=== PATIENT | female | born 1935 | race Caucasian/White ===

== ENCOUNTER 2017-11-02 06:17 | Inpatient (IN) | payer MEDICARE, OTHER ==
[2017-10-22 09:22] LABS: ABSOLUTE BASOPHILS 0.1 thou/uL (0.0-0.2); ABSOLUTE EOSINOPHILS 0.2 thou/uL (0.0-0.7); ABSOLUTE LYMPHOCYTES 1.8 thou/uL (0.8-5.3); ABSOLUTE MONOCYTES 0.8 thou/uL (0.0-1.2); ABSOLUTE NEUTROPHILS 6.2 thou/uL (1.6-8.1); BASOPHILS 1.2 %; EOSINOPHILS 2.6 %; HEMATOCRIT 36.3 % (37.0-47.0); HEMOGLOBIN 11.5 gm/dL (12.0-15.0); LYMPHOCYTES 20.1 %; MCHC 31.8 g/dL (28.0-37.0); MCV 88.1 fL (80.0-100.0); MONOCYTES 8.3 %; MPV 9.4 fl. (7.2-11.1); NUCLEATED RBCS 0 /100WBC; PLATELET COUNT* 224 thou/uL (150-400); POLYS 67.8 %; RBC 4.12 mil/uL (4.20-5.00); RDW-CV 15.6 % (10.5-14.5); WBC 9.1 thou/uL (4.0-11.0)
[2017-10-22 09:32] LABS: APTT 30.2 Seconds (25.0-31.3); PROTIME 9.7 Seconds (9.20-11.50)
[2017-10-22 09:35] LABS: ALBUMIN 3.7 g/dL (3.4-5.0); CALCIUM 9.2 mg/dL (8.5-10.1); CREATININE 1.2 mg/dL (0.6-1.3); POTASSIUM 5.3 mmol/L (3.5-5.1); TOTAL BILIRUBIN 0.2 mg/dL (<0.1-1.0); TOTAL PROTEIN 7.6 g/dL (6.4-8.2)
[2017-10-22 10:27] LABS: ESR (SEDRATE) 30 mm/hr (0-30)
--- NOTE | 2017-10-23 17:05 | EKG ---
[place] [address] ELECTROCARDIOGRAM REPORT Name: RIASCOOBY ALDRICH Room: PRE IN .R.#: [id number] Admission: Attend Phys: Jose Rojo Discharge: Date of : 31 Report #: [id number] THIS REPORT FOR: //name// [facility] Test Date: 2017-10-22 Test Time: 09:23:38 Pat Name: SCOOBY ROLLINS Department: Room: Gender: F [employer] Machine: : 1935 Requested By: Will Tanner Order Number: [id number] Reading MD: Akash Armenta Measurements Intervals Orient Rate: 77 P: 70 MT: 212 QRS: 25 QRSD: 87 T: 24 QT: 368 QTc: 417 Interpretive Statements Sinus rhythm Borderline prolonged MT interval Probable anteroseptal infarct, old No previous ECG available for comparison Electronically Signed On 10-23-2017 17:05:17 CDT by Akash Armenta [email or web address] <ELECTRONICALLY SIGNED> By: Akash Armenta MD, [facility] 10/23/17 1705 0923 2 Akash Armenta MD, FACC /EPI
[~2017-11-02] VITALS: Ht 160 cm; Wt 76.7 kg
[~2017-11-02 06:17] MED LIST: AMARYL2 MG PO; AMBIEN 5 MG TABL5 M1 PO; ASPIRIN81 M2 PO; COLACE100 MG PO; HYZAAR 100-12.1 EACH PO; JANUMET 50-1,01 EACH PO; LYRICA 75 MG CA75 MG PO; NORCO 5-325 TA1 EACH PO; NORVASC5 MG PO; SYNTHROID75 MCG PO
[2017-11-02 11:30] VITALS: BP 157/76
[2017-11-02 17:10] VITALS: BP 158/68
[2017-11-02 20:00] VITALS: BP 147/69
[2017-11-02 23:48] VITALS: BP 113/56
[2017-11-03 04:00] VITALS: BP 115/50
[2017-11-03 04:45] LABS: HEMATOCRIT 27.8 % (37.0-47.0); HEMOGLOBIN 9.1 gm/dL (12.0-15.0)
[2017-11-03 08:00] VITALS: BP 159/93
[2017-11-03 15:53] VITALS: BP 149/68
[2017-11-03 20:00] VITALS: BP 152/64
[2017-11-04 00:32] VITALS: BP 146/70
[2017-11-04 03:55] VITALS: BP 154/69
[2017-11-04 04:33] LABS: HEMOGLOBIN 8.8 gm/dL (12.0-15.0)
[2017-11-04 08:00] VITALS: BP 111/66
[2017-11-04 16:54] VITALS: BP 118/71
[2017-11-04 20:00] VITALS: BP 161/62
[2017-11-05 00:04] VITALS: BP 154/66
--- NOTE | 2017-11-05 06:05 | PATH ---
[address] [address] PATHOLOGY RPT PROCEDURE Name: GOSIA ROLLINS ELINOR Room: [address] IN M.R.#: [id number] Admission: 11/02/17 Date of : 31 Discharge: Report #: [id number] Path Case #: [id number] [facility] Accession Number: [id number] . 01 Material submitted: . RIGHT KNEE BONE AND TISSUE . 01 Clinical history: . Right knee degenerative joint disease . 02 Diagnosis: Right knee bone and tissue, total knee replacement: - Benign meniscus and synovium and benign bone and cartilage with severe degenerative changes. (COREY:db; 11/04/2017) LBQ/11/04/2017 . 02 Electronically signed: . Cameron Cardenas MD, Pathologist NPI- [id number] . 01 Gross description: . Received in formalin labeled "Gosia Rollins, right knee bone and tissue," are multiple segments of bone, including tibial plateau, measuring 13.7 x 11.8 x 1.8 cm in aggregate dimensions. Soft tissue and meniscus are present. The specimen displays focal eburnation of the articular surfaces. Shop [employer] bone and soft tissue are submitted in cassette A1, following decalcification. (DAC; 11/03/2017) XDC/XDC . 02 Pathologist provided ICD-10: M17.11 . 02 CPT . 675908, 420274 Performed at: [address], [place] [id number] MD Steve Anne MD Phone: [phone] Performed at: 02 [facility] [address], [place], [place] [id number] MD Cameron Cardenas MD Phone: [phone]
[2017-11-05 08:29] VITALS: BP 182/65
[2017-11-05 09:32] VITALS: BP 155/61
[2017-11-05 11:48] VITALS: BP 155/61
[2017-11-05] MEDS ORDERED: ELIQUIS2.5 MG PO (11:56)
[2017-11-05] MEDS ORDERED: OXYCODONE HCL 55 MG PO (11:57)
--- NOTE | 2017-11-23 11:41 | OP ---
[address] [address] OPERATIVE REPORT Name: SCOOBY ROLLINS ELINOR Room: [address] IN M.R.#: [id number] Admission: 11/02/17 Attend Phys: Jose Rojo Discharge: 11/05/17 Date of : 31 Report #: [id number] THIS REPORT FOR: //name// CC: Gene Benitesdylon Anguiano DICTATED BY: Hamilton Dutta DO DATE OF SERVICE: 11/02/2017 PREOPERATIVE DIAGNOSIS: Advanced degenerative joint disease, right knee. POSTOPERATIVE DIAGNOSIS: Advanced degenerative joint disease, right knee. PROCEDURE PERFORMED: Right total knee arthroplasty. PRIMARY SURGEON: Will Tanner DO COACH: Hamilton Dutta DO SECOND ASSIST: Stan Diaz DO ANESTHESIA: General with local capsular block. ESTIMATED BLOOD LOSS: 125 mL. SPECIMENS: None. COMPLICATIONS: None. CONDITION: Stable. DRAINS: None. ANTIBIOTICS: 2 grams Ancef preop. IMPLANTS: 1. [employer] size 4 posterior stabilized femoral component. 2. A size 4 tibial baseplate. 3. A 11 mm posterior stabilized polyethylene liner. 4. A 29 mm oval patella. INDICATIONS: The patient is an 82-year-old female who is well known to our clinic. We have seen her multiple times regarding her right knee pain. Unfortunately, she has continued to have pain that is affecting her quality of [address] [place] [address] OPERATIVE REPORT Name: SCOOBY ROLLINS OCTOBER Room: [address] IN M.R.#: [id number] Admission: 11/02/17 Attend Phys: Jose Rojo Discharge: 11/05/17 Date of : 31 Report #: [id number] living and ability to perform ADLs. She has not responded to conservative treatment over the past 6 months. She presents today for right total knee arthroplasty. Risks, benefits, complications and alternatives to surgery have been reviewed and discussed with her and she is wishing to proceed. DESCRIPTION OF PROCEDURE: The patient taken to the OR suite, placed supine on the OR table, given the benefit of general anesthetic. She was then prepped and draped in the usual sterile fashion. Prior to procedure, timeout was taken confirming correct site, patient and procedure. Procedure began with a midline incision over the right knee. Dissection was carried down through skin and subcutaneous tissues to the joint capsule. A medial parapatellar arthrotomy was then performed using a second knife. The excess fat pad, anterior horns of medial and lateral menisci, ACL, and PCL were all removed. The patella was everted and the leg was brought up into flexion. Opening drill was used to access the femoral canal. Intramedullary guide jaime was used to place a distal femoral cutting block set for 10 mm resection and 5 degrees of valgus. This was pinned in place and our distal femoral cut was made. We then proceeded to the tibia. Extramedullary guide jaime was used to measure our tibial cut, approximately 9 mm of bone was resected referencing the lateral tibial plateau, which was the high side. Our tibial block was pinned in place referencing the medial third tibial tubercle and mid talus as well. Appropriate slope was dialed in. The proximal tibia cut was then performed. Leg was brought into extension and a 10 mm spacer block was placed. This allowed full extension and overall good balancing medially and laterally. We then flexed the knee up and proceeded to size our distal femur, this was measured at a size 4. The 4-in-1 cutting block was pinned in place and these cuts were made. Please note, retractors were placed at all times during bone cuts to protect all vital structures and ligaments. Next, we sized our proximal tibia. This was measured at a size 4. Tibial tray was pinned in place, once again referencing mid talus and the medial third tibial tubercle. We then proceeded to place a trial femur. The intercondylar notch was repaired during this time as well. An 11 mm insert was placed. The patella was then evaluated. There was a significant amount of wear. Therefore, this was resurfaced as well using the patella reaming system. A trial patella was placed and taken through range of motion and was found to be tracking well. The 11 mm poly provided good stability and full extension. We then removed all components. The proximal tibia was drilled and punched. The knee was thoroughly irrigated while the cement was mixed on the back table. Final implants were placed beginning with the tibial tray, followed by the femur, followed by the patella. An 11 mm spacer was used for compression. All excess cement was removed. The knee was held in extension while the cement adequately cured. Final 11 mm poly was placed. We then placed a posterior capsular block and 1 gram vancomycin was placed within the wound. The capsule was reapproximated with 0 Vicryl and a running Quill, 2-0 Monocryl for skin in a running V-Loc with Dermabond glue. Sterile dressings were applied. The patient [address] [address] OPERATIVE REPORT Name: SCOOBY ROLLINS OCTOBER [facility] [id number] Admission: 11/02/17 Attend Phys: Jose Rojo Discharge: 11/05/17 Date of : 31 Report #: [id number] tolerated the procedure well and was transferred to PACU in good stable condition. All sponge, needle counts were correct x 2. <ELECTRONICALLY SIGNED> By: Will Tanner DO 11/23/17 1141 1541 [id number] Tanner DO /nt
== END 2017-11-05 15:45 | DRG 470 ==
LOC: M.PRE 06:17 → M.ORTHSURG 10:54 → M.TBA 10:54 → M.ORTHSURG 16:49
PROVIDERS: Emergency Medicine; Orthopaedic Surgery; ADMIT Internal Medicine
PROC: 0SRC0J9 Replacement of Right Knee Joint with Synthetic Substitute, Cemented, Open Approach (ICD-10-PCS; principal; 2017-11-02)
DX: M17.11 Unilateral primary osteoarthritis, right knee (principal); M79.7 Fibromyalgia; E11.9 Type 2 diabetes mellitus without complications; E03.9 Hypothyroidism, unspecified; E11.40 Type 2 diabetes mellitus with diabetic neuropathy, unspecified; F32.9 Major depressive disorder, single episode, unspecified; F17.210 Nicotine dependence, cigarettes, uncomplicated; J45.909 Unspecified asthma, uncomplicated; I12.9 Hypertensive chronic kidney disease with stage 1 through stage 4 chronic kidney disease, or unspecified chronic kidney disease; E11.22 Type 2 diabetes mellitus with diabetic chronic kidney disease; N18.3 Chronic kidney disease, stage 3 (moderate); Z88.8 Allergy status to other drugs, medicaments and biological substances; Z79.82 Long term (current) use of aspirin; Z90.49 Acquired absence of other specified parts of digestive tract; Z82.49 Family history of ischemic heart disease and other diseases of the circulatory system; Z80.9 Family history of malignant neoplasm, unspecified